=== PATIENT | female | born 1995 | race Caucasian/White ===

== ENCOUNTER 2017-06-15 04:31 | Emergency (ER) | payer BC, OTHER ==
--- NOTE | 2017-06-15 04:52 | EDM.PDOC ---
ED HPI GENERAL MEDICAL PROBLEM - General Chief Complaint: Genitourinary Problem Stated Complaint: uti symptoms Time Seen by Provider: 06/15/17 04:39 Source of Information: Reports: Patient History Limitations: Reports: No Limitations - History of Present Illness INITIAL COMMENTS - FREE TEXT/NARRATIVE: Patient states that about 3 weeks ago she began to have UTI symptoms of burning , frequency, and painful urination. She states that her urine and STI testing came back negative. She did then go into the [facility] and was given a vaginal topical gel for yeast infection. She did get better for a week or so , but the symptoms have returned. She additionally has lower bilateral back pain, right greater than left. Has burning, frequency as well. She also states some nausea. No additional symptoms. Onset: Today, Sudden Onset Time: 03:00 Location: Reports: Back Quality: Reports: Burning, Same as Previous Episode, Sharp, Stabbing Severity: Moderate Associated Symptoms: Reports: Nausea/Vomiting - Related Data Allergies Allergy/AdvReac Type Severity Reaction Status Date / Time cephalexin Allergy Rash Verified 06/15/17 04:35 Home Meds: Home Meds . [No Known Home Meds] 06/15/17 [History] Past Medical History - Past Health History Medical/Surgical History: Denies Medical/Surgical History Social & Family History - Tobacco Use Smoking Status *Q: Current Every Day Smoker Years of Tobacco use: 5 Packs/Tins Daily: 0.5 ED ROS GENERAL - Review of Systems Review Of Systems: See Below Constitutional: Reports: No Symptoms HEENT: Reports: No Symptoms Respiratory: Reports: No Symptoms Cardiovascular: Reports: No Symptoms Endocrine: Reports: No Symptoms GI/Abdominal: Reports: Nausea : Reports: Dysuria, Flank Pain, Frequency, Urgency Skin: Reports: No Symptoms Neurological: Reports: No Symptoms Psychiatric: Reports: No Symptoms Hematologic/Lymphatic: Reports: No Symptoms Immunologic: Reports: No Symptoms ED EXAM, RENAL/ - Physical Exam Exam: See Below Exam Limited By: No Limitations General Appearance: Alert, WD/WN, No Apparent Distress Head: Atraumatic, Normocephalic Neck: Normal Inspection, Supple, Non-Tender, Full Range of Motion Respiratory/Chest: No Respiratory Distress, Lungs Clear, Normal Breath Sounds, No Accessory Muscle Use, Chest Non-Tender Cardiovascular: Normal Peripheral Pulses, No Edema, No Murmur, Tachycardia GI/Abdominal: Normal Bowel Sounds, Soft, Non-Tender, No Organomegaly, No Distention Back Exam: CVA Tenderness (L), CVA Tenderness (R) Extremities: Normal Inspection, Normal Range of Motion, Non-Tender, No Pedal Edema, Normal Capillary Refill Neurological: Alert, Oriented, CN II-XII Intact, Normal Cognition, Normal Gait, Normal Reflexes, No Motor/Sensory Deficits Psychiatric: Normal Affect, Normal Mood Skin Exam: Warm, Dry, Intact, Normal Color Lymphatic: No Adenopathy Course - Vital Signs Last Recorded V/S: Last Vital Signs Temp 35.6 C 06/15/17 04:31 Pulse 102 H 06/15/17 04:31 Resp 16 06/15/17 04:31 BP 116/82 06/15/17 04:31 Pulse Ox 97 06/15/17 04:31 Departure - Departure Time of Disposition: 05:12 Disposition: Home, Self-Care 01 Condition: Good Clinical Impression: Pyelonephritis, UTI (urinary tract infection) - Discharge Information Instructions: Urinary Tract Infection, Adult, [id number], Pyelonephritis, Adult, [id number] Forms: ED Department Discharge Additional Instructions: Drink plenty of fluid to help flush your kidneys Cipro 500 mg take one tablet twice daily for 7 days. Your first dose was given here. Get some over the counter pyridium for urinary pain. Take as directed. This will discolor your urine, most people report it turning orange. I did provide information on pyelonephritis as well as for UTI If you do not improve, make sure to follow up with your primary provider during clinic hours Please call us if you have any questions or concerns. - Problem List & Annotations (1) Pyelonephritis SNOMED Code(s): 65673793 Code(s): N12 - TUBULO-INTERSTITIAL NEPHRITIS, NOT SPCF ACUTE OR CHRONIC Status: Acute Priority: Low Current Visit: Yes (2) UTI (urinary tract infection) SNOMED Code(s): 21531365 Code(s): N39.0 - URINARY TRACT INFECTION, SITE NOT SPECIFIED Status: Acute Priority: Low Current Visit: Yes Qualifiers: Urinary tract infection type: acute cystitis Hematuria presence: with hematuria Qualified Code(s): N30.01 - Acute cystitis with hematuria - Problem List Review Problem List Initiated/Reviewed/Updated: Yes - Assessment/Plan Assessment:: pyelonephritis uti Plan: Drink plenty of fluid to help flush your kidneys Cipro 500 mg take one tablet twice daily for 7 days. Your first dose was given here. Get some over the counter pyridium for urinary pain. Take as directed. This will discolor your urine, most people report it turning orange. I did provide information on pyelonephritis as well as for UTI If you do not improve, make sure to follow up with your primary provider during clinic hours Please call us if you have any questions or concerns.
[2017-06-15] MEDS ORDERED: Ciprofloxacin 500 MG Tab PO ONE (04:59)
[2017-06-15] MEDS ORDERED: Phenazopyridine 95 MG Tab PO ONE (05:07)
== END 2017-06-15 05:17 | disposition home or self-care (01) ==
LOC: VM.ED 04:31
DX: N12 Tubulo-interstitial nephritis, not specified as acute or chronic (principal); N39.0 Urinary tract infection, site not specified; F17.210 Nicotine dependence, cigarettes, uncomplicated; Z88.1 Allergy status to other antibiotic agents
CPT/HCPCS: 81002; 99283; A9270

== ENCOUNTER 2019-02-26 13:28 | Emergency (ER) | payer OTHER ==
[2019-02-26] MEDS ORDERED: Sodium Chloride 0.9% 10 ML Syringe FLUSH PRN (13:42)
[2019-02-26] MEDS ORDERED: Sodium Chloride 0.9% 1,000 ML IV ONE (13:42)
[2019-02-26] MEDS ORDERED: hydrOXYzine HCl 25 MG Tab PO ONE (13:42)
--- NOTE | 2019-02-26 13:51 | EDM.PDOC ---
ED HPI GENERAL MEDICAL PROBLEM - General Chief Complaint: Cardiovascular Problem Stated Complaint: ER VISIT Time Seen by Provider: 02/26/19 13:28 Source of Information: Reports: Patient History Limitations: Reports: No Limitations - History of Present Illness INITIAL COMMENTS - FREE TEXT/NARRATIVE: Patient comes in the emergency department with complaints heart palpitation. Patient states that this started approximately 2 weeks ago. Patient states that she has intermittent shortness of breath. She denies any intervening or alleviating symptoms with a heart palpitations. She states that she is on Zoloft and BuSpar and she has been on them now for greater than 6 months. She has not had any recent medication changes. She denies having any increased stress or anxiety concerns. Patient currently denies any fever, nausea vomiting , diarrhea, headache, edema or changes in vision. She describes the pain and discomfort as sharp and shooting. Denies having any radiation to the jaw or neck. No recent fevers or other illnesses noted. Onset: Gradual Location: Reports: Chest Quality: Reports: Sharp, Stabbing Severity: Moderate Improves with: Reports: None Worsens with: Reports: None Associated Symptoms: Reports: No Other Symptoms Left Chest Pain Score (Numeric/FACES): 6 - Related Data Allergies Allergy/AdvReac Type Severity Reaction Status Date / Time cephalexin Allergy Rash Verified 02/26/19 13:51 Home Meds: Home Meds Sertraline HCl 75 mg PO DAILY 02/26/19 [History] busPIRone [Buspar] 1 tab PO BID 02/26/19 [History] Past Medical History - Past Health History Medical/Surgical History: Denies Medical/Surgical History ED ROS GENERAL - Review of Systems Review Of Systems: See Below Constitutional: Reports: No Symptoms HEENT: Reports: No Symptoms Respiratory: Reports: Shortness of Breath (intermittent when she feels the heart palpitations are worse ) Cardiovascular: Reports: No Symptoms Endocrine: Reports: No Symptoms GI/Abdominal: Reports: No Symptoms : Reports: No Symptoms Musculoskeletal: Reports: No Symptoms Skin: Reports: No Symptoms Neurological: Reports: No Symptoms Psychiatric: Reports: No Symptoms Hematologic/Lymphatic: Reports: No Symptoms Immunologic: Reports: No Symptoms ED EXAM, GENERAL - Physical Exam Exam: See Below Exam Limited By: No Limitations General Appearance: Alert, WD/WN, No Apparent Distress Head: Atraumatic, Normocephalic Neck: Normal Inspection, Supple, Non-Tender, Full Range of Motion Respiratory/Chest: No Respiratory Distress, Lungs Clear, Normal Breath Sounds, No Accessory Muscle Use, Chest Non-Tender Cardiovascular: Normal Peripheral Pulses, Regular Rate, Rhythm GI/Abdominal: Normal Bowel Sounds, Soft, Non-Tender, No Organomegaly, No Distention, No Abnormal Bruit Extremities: Normal Inspection, Normal Range of Motion, Non-Tender, No Pedal Edema, Normal Capillary Refill Neurological: Alert, Oriented, Normal Gait Psychiatric: Normal Affect, Normal Mood Skin Exam: Warm, Dry, Intact, Normal Color Course - Vital Signs Last Recorded V/S: Last Vital Signs Temp 37.1 C 02/26/19 13:55 Pulse 79 02/26/19 13:55 Resp 20 02/26/19 13:55 BP 113/74 02/26/19 14:38 Pulse Ox 100 02/26/19 13:55 - Orders/Labs/Meds Orders: Active Orders 24 hr Category Date Time Status EKG Documentation Completion [RC] STAT Care 02/26/19 13:42 Active Sodium Chloride 0.9% [Saline Flush] Med 02/26/19 13:42 Active 10 ml FLUSH ASDIRECTED PRN Peripheral IV Insertion Adult [OM.PC] Stat Oth 02/26/19 13:41 Ordered Medication Orders Sodium Chloride (Saline Flush) 10 ml FLUSH ASDIRECTED PRN PRN Reason: Keep Vein Open Labs: Laboratory Tests 02/26/19 02/26/19 02/26/19 Range/Units 13:52 13:52 13:52 WBC 5.7 (4.0-10.0) x10^3/uL RBC 3.97 L (4.00-5.50) x10^6/uL Hgb 11.9 L (12.0-16.0) g/dL Hct 36.1 (33.0-47.0) % MCV 90.9 (78.0-93.0) fL MCH 30.0 (26.0-32.0) pg MCHC 33.0 (32.0-36.0) g/dL RDW Coeff of Courtney 13.8 (10.0-15.0) % Plt Count 352 (130-400) x10^3/uL Neut % (Auto) 58.9 (50.0-80.0) % Lymph % (Auto) 33.6 (25.0-50.0) % [place] % (Auto) 5.6 (2.0-11.0) % Eos % (Auto) 1.7 (0.0-4.0) % Baso % (Auto) 0.2 (0.2-1.2) % D-Dimer, Quantitative < 0.19 (<=0.58) mg/LFEU Sodium 146 H (136-145) mmol/L Potassium 3.9 (3.5-5.1) mmol/L Chloride 109 H (98-107) mmol/L Carbon Dioxide 27 (21-32) mmol/L Anion Gap 13.9 (10-20) mmol/L BUN 10 (7-18) mg/dL Creatinine 0.6 (0.55-1.02) mg/dL Est Cr Clr Drug Dosing 105.31 mL/min Estimated GFR (MDRD) > 60 Glucose 75 (74-106) mg/dL Calcium 8.2 L (8.5-10.1) mg/dL Corrected Calcium 8.44 L (8.5-10.1) mg/dL Total Bilirubin 0.2 (0.2-1.0) mg/dL AST 15 (15-37) U/L ALT 30 (14-59) U/L Alkaline Phosphatase 45 L (46-116) U/L POC Troponin I (0.00-0.08) ng/mL Total Protein 7.0 (6.4-8.2) g/dL Albumin 3.7 (3.4-5.0) g/dL Globulin 3.3 Albumin/Globulin Ratio 1.12 02/26/19 Range/Units 14:00 WBC (4.0-10.0) x10^3/uL RBC (4.00-5.50) x10^6/uL Hgb (12.0-16.0) g/dL Hct (33.0-47.0) % MCV (78.0-93.0) fL MCH (26.0-32.0) pg MCHC (32.0-36.0) g/dL RDW Coeff of Courtney (10.0-15.0) % Plt Count (130-400) x10^3/uL Neut % (Auto) (50.0-80.0) % Lymph % (Auto) (25.0-50.0) % [place] % (Auto) (2.0-11.0) % Eos % (Auto) (0.0-4.0) % Baso % (Auto) (0.2-1.2) % D-Dimer, Quantitative (<=0.58) mg/LFEU Sodium (136-145) mmol/L Potassium (3.5-5.1) mmol/L Chloride (98-107) mmol/L Carbon Dioxide (21-32) mmol/L Anion Gap (10-20) mmol/L BUN (7-18) mg/dL Creatinine (0.55-1.02) mg/dL Est Cr Clr Drug Dosing mL/min Estimated GFR (MDRD) Glucose (74-106) mg/dL Calcium (8.5-10.1) mg/dL Corrected Calcium (8.5-10.1) mg/dL Total Bilirubin (0.2-1.0) mg/dL AST (15-37) U/L ALT (14-59) U/L Alkaline Phosphatase (46-116) U/L POC Troponin I 0.00 (0.00-0.08) ng/mL Total Protein (6.4-8.2) g/dL Albumin (3.4-5.0) g/dL Globulin Albumin/Globulin Ratio Meds: Medications Generic Name Dose Route Start Last Admin Trade Name Freq PRN Reason Stop Dose Admin Sodium Chloride 10 ml 02/26/19 13:42 Saline Flush FLUSH ASDIRECTED PRN Keep Vein Open Discontinued Medications Generic Name Dose Route Start Last Admin Trade Name Freq PRN Reason Stop Dose Admin Hydroxyzine HCl 50 mg 02/26/19 13:42 02/26/19 13:49 Atarax PO 02/26/19 13:43 50 mg ONETIME ONE Administration Sodium Chloride 1,000 mls @ 1,000 mls/hr 02/26/19 13:42 02/26/19 13:40 Normal Saline IV 02/26/19 14:41 1,000 mls/hr ONETIME ONE Administration - Re-Assessments/Exams Free Text/Narrative Re-Assessment/Exam: 02/26/19 14:24 Pt is feeling better the heart palpitations are gone however the left sternal chest discomfort is still present and has not changed. Departure - Departure Time of Disposition: 15:20 Disposition: Home, Self-Care 01 Condition: Good Clinical Impression: Heart palpitations Instructions: Palpitations, [id number] Referrals: Swathi Arnett MD [Primary Care Provider] - Forms: ED Department Discharge Additional Instructions: 1. rest 2. increase your water intake 3. Follow up with PCP this next week if not better 4. All labs were negative today 5. Chext xray showed no acute findings 6. Activity and diet as tolerated 7. Makes sure you are taking your medications with 8 oz of water and at least 200-300 calories 8. Smoking sensation is advised and ND quits offers free resources when you are ready. Please remember your medications and smoking increase your risk for health problems. 9. Please call with any questions or concerns. - Problem List Review Problem List Initiated/Reviewed/Updated: Yes - My Orders Last 24 Hours: My Active Orders 02/26/19 13:41 Peripheral IV Insertion Adult [OM.PC] Stat 02/26/19 13:42 EKG Documentation Completion [RC] STAT Sodium Chloride 0.9% [Saline Flush] 10 ml FLUSH ASDIRECTED PRN - Assessment/Plan Last 24 Hours: My Active Orders 02/26/19 13:41 Peripheral IV Insertion Adult [OM.PC] Stat 02/26/19 13:42 EKG Documentation Completion [RC] STAT Sodium Chloride 0.9% [Saline Flush] 10 ml FLUSH ASDIRECTED PRN Assessment:: 1. chest pain/palpitation Plan: 1. Labs completed in the ER. results reviewed with the patient. 2. EKG completed in the ER-normal sinus with no ectopy 3. IV fluids given in the ER. 4. Hydroxyzine PO given to help with anxiety 5. Xray completed in ER. negative findings 6. Discussed follow up care, activity, diet, and exercise 7. All questions and concerns addressed prior to discharge
[2019-02-26 14:25] LABS: CHLORIDE,CL 109 mmol/L (98-107); SODIUM,NA 146 mmol/L (136-145)
[2019-02-26 14:27] LABS: ANION GAP 13.9 mmol/L (10-20)
--- NOTE | 2019-02-26 15:09 | CR ---
[id number] RAD/RAD Chest PA And Lateral EXAM: RAD Chest PA And Lateral INDICATION: LEFT SIDE CHEST PAIN. COMPARISON: None. DISCUSSION: Cardiomediastinal silhouette is normal in size and contour. No infiltrate, effusion, pneumothorax, or edema. No radiographic evidence of acute rib fracture. IMPRESSION: No acute cardiopulmonary abnormality. Damir Suárez DO 02/26/19 1507 Thank you for allowing us to participate in the care of your patient.
== END 2019-02-26 15:34 | disposition home or self-care (01) ==
LOC: VM.ED 13:28
DX: R00.2 Palpitations (principal); R07.9 Chest pain, unspecified; Z88.1 Allergy status to other antibiotic agents
CPT/HCPCS: 36415; 71046; 80053; 84484; 85025; 85379; 93005; 99285-25; A9270-GY; J7030

== ENCOUNTER 2019-03-17 14:26 | Emergency (ER) | payer OTHER ==
[2019-03-17] MEDS ORDERED: Sodium Chloride 0.9% 1,000 ML IV ONE (14:32)
[2019-03-17] MEDS ORDERED: Sodium Chloride 0.9% 10 ML Syringe FLUSH PRN (14:32)
[2019-03-17] MEDS ORDERED: hydrOXYzine HCl 25 MG Tab PO ONE (14:33)
--- NOTE | 2019-03-17 14:39 | EDM.PDOC ---
ED HPI GENERAL MEDICAL PROBLEM - General Chief Complaint: Cardiovascular Problem Stated Complaint: HEART Time Seen by Provider: 03/17/19 14:26 Source of Information: Reports: Patient History Limitations: Reports: No Limitations - History of Present Illness INITIAL COMMENTS - FREE TEXT/NARRATIVE: Patient comes into the emergency department with complaint of heart palpitations. Patient states that the heart palpitations started around 7 AM this morning. Patient was recently in the emergency department for similar incidents and ended up having a Holter monitor placed. Pt was found to have a sinus tachycardia. She was recently placed on propranolol 60 mg daily. She just started this approximately 1 week ago. She states after she took the medication this morning she noticed that she had her palpitations and felt that her chest has a heavy sensation. She states that it has not gone away throughout the day. It also has not progressing gotten worse. She denies anything making it better or worse. She denies any changes in her diet. She also denies any recent fevers or swelling in her lower extremity is. Chest pain is described as a heavy feeling. No family history of sudden cardiac Location: Reports: Chest Quality: Reports: Pressure Severity: Moderate Improves with: Reports: None Worsens with: Reports: None Associated Symptoms: Reports: No Other Symptoms - Related Data Allergies Allergy/AdvReac Type Severity Reaction Status Date / Time cephalexin Allergy Rash Verified 03/17/19 14:56 Home Meds: Home Meds Sertraline HCl 75 mg PO DAILY 02/26/19 [History] busPIRone [Buspar] 1 tab PO BID 02/26/19 [History] Metoprolol Tartrate 25 mg PO DAILY PRN #10 tablet 03/17/19 [Rx] Propranolol HCl [Propranolol] 60 mg PO DAILY 03/17/19 [History] Past Medical History - Past Health History Medical/Surgical History: Denies Medical/Surgical History [employer] History: Reports: Psychiatric History: Reports: Anxiety, Depression - Past Surgical History HEENT Surgical History: Reports: Adenoidectomy, Tonsillectomy Musculoskeletal Surgical History: Reports: Other (See Below) Other Musculoskeletal Surgeries/Procedures:: hx of surgery to right ankle, right femur and jaw ED ROS GENERAL - Review of Systems Review Of Systems: See Below Constitutional: Reports: No Symptoms HEENT: Reports: No Symptoms Respiratory: Reports: No Symptoms Cardiovascular: Reports: Palpitations Endocrine: Reports: No Symptoms GI/Abdominal: Reports: No Symptoms : Reports: No Symptoms Musculoskeletal: Reports: No Symptoms Skin: Reports: No Symptoms Neurological: Reports: No Symptoms Psychiatric: Reports: No Symptoms ED EXAM, GENERAL - Physical Exam Exam: See Below Exam Limited By: No Limitations General Appearance: Alert, WD/WN, No Apparent Distress Head: Atraumatic, Normocephalic Respiratory/Chest: No Respiratory Distress, Lungs Clear, Normal Breath Sounds, No Accessory Muscle Use, Chest Non-Tender Cardiovascular: Regular Rate, Rhythm Back Exam: Normal Inspection, Full Range of Motion Extremities: Normal Inspection, Normal Range of Motion, Non-Tender, No Pedal Edema, Normal Capillary Refill Neurological: Alert, Oriented Psychiatric: Normal Affect, Normal Mood, Anxious Skin Exam: Warm, Dry, Intact, Normal Color Course - Vital Signs Last Recorded V/S: Last Vital Signs Temp 36.2 C 03/17/19 14:30 Pulse 58 L 03/17/19 14:30 Resp 16 03/17/19 14:30 BP 121/75 03/17/19 14:30 Pulse Ox 99 03/17/19 14:30 - Orders/Labs/Meds Orders: Active Orders 24 hr Category Date Time Status EKG Documentation Completion [RC] STAT Care 03/17/19 14:32 Active Sodium Chloride 0.9% [Saline Flush] Med 03/17/19 14:32 Active 10 ml FLUSH ASDIRECTED PRN Peripheral IV Insertion Adult [OM.PC] Stat Oth 03/17/19 14:32 Ordered Medication Orders Sodium Chloride (Saline Flush) 10 ml FLUSH ASDIRECTED PRN PRN Reason: Keep Vein Open Labs: Laboratory Tests 03/17/19 03/17/19 Range/Units 14:43 14:43 WBC 7.7 (4.0-10.0) x10^3/uL RBC 4.09 (4.00-5.50) x10^6/uL Hgb 12.4 (12.0-16.0) g/dL Hct 37.2 (33.0-47.0) % MCV 91.0 (78.0-93.0) fL MCH 30.3 (26.0-32.0) pg MCHC 33.3 (32.0-36.0) g/dL RDW Coeff of Courtney 13.9 (10.0-15.0) % Plt Count 317 (130-400) x10^3/uL Neut % (Auto) 69.3 (50.0-80.0) % Lymph % (Auto) 24.8 L (25.0-50.0) % [place] % (Auto) 5.2 (2.0-11.0) % Eos % (Auto) 0.6 (0.0-4.0) % Baso % (Auto) 0.1 L (0.2-1.2) % Sodium 142 (136-145) mmol/L Potassium 3.5 (3.5-5.1) mmol/L Chloride 105 (98-107) mmol/L Carbon Dioxide 26 (21-32) mmol/L Anion Gap 14.5 (10-20) mmol/L BUN 10 (7-18) mg/dL Creatinine 0.8 (0.55-1.02) mg/dL Est Cr Clr Drug Dosing TNP Estimated GFR (MDRD) > 60 Glucose 130 H (74-106) mg/dL Calcium 8.9 (8.5-10.1) mg/dL Corrected Calcium 8.90 (8.5-10.1) mg/dL Total Bilirubin 0.2 (0.2-1.0) mg/dL AST 17 (15-37) U/L ALT 31 (14-59) U/L Alkaline Phosphatase 52 (46-116) U/L Troponin I < 0.017 (<=0.056) ng/mL Total Protein 7.3 (6.4-8.2) g/dL Albumin 4.0 (3.4-5.0) g/dL Globulin 3.3 Albumin/Globulin Ratio 1.21 Meds: Medications Generic Name Dose Route Start Last Admin Trade Name Freq PRN Reason Stop Dose Admin Sodium Chloride 10 ml 03/17/19 14:32 Saline Flush FLUSH ASDIRECTED PRN Keep Vein Open Discontinued Medications Generic Name Dose Route Start Last Admin Trade Name Freq PRN Reason Stop Dose Admin Hydroxyzine HCl 50 mg 03/17/19 14:33 03/17/19 14:49 Atarax PO 03/17/19 14:34 50 mg ONETIME ONE Administration Sodium Chloride 1,000 mls @ 1,000 mls/hr 03/17/19 14:32 03/17/19 14:49 Normal Saline IV 03/17/19 15:31 1,000 mls/hr ONETIME ONE Administration - Re-Assessments/Exams Free Text/Narrative Re-Assessment/Exam: 03/17/19 15:38 chest heaviness is relieved however she still feels the palpitations Departure - Departure Time of Disposition: 16:10 Disposition: Home, Self-Care 01 Condition: Good Clinical Impression: Heart palpitations Instructions: Palpitations, [id number] Referrals: Swathi Arnett MD [Primary Care Provider] - Forms: ED Department Discharge Additional Instructions: 1. Rest 2. Increase water intake 3. Stop the propranolol 4. Start metoprolol tartrate 25 mg 1 tablet daily when necessary when heart palpitations occurred 5. It is also advisable that you talk to your PCP about having your antidepressant and antianxiety medication increased to help with the palpitations 6. Decrease caffeine intake when possible 7. Follow up as necessary 8. Call with any questions or concerns - Problem List Review Problem List Initiated/Reviewed/Updated: Yes - My Orders Last 24 Hours: My Active Orders 03/17/19 14:32 EKG Documentation Completion [RC] STAT Sodium Chloride 0.9% [Saline Flush] 10 ml FLUSH ASDIRECTED PRN Peripheral IV Insertion Adult [OM.PC] Stat - Assessment/Plan Last 24 Hours: My Active Orders 03/17/19 14:32 EKG Documentation Completion [RC] STAT Sodium Chloride 0.9% [Saline Flush] 10 ml FLUSH ASDIRECTED PRN Peripheral IV Insertion Adult [OM.PC] Stat Assessment:: #1 heart palpitations # 2 bradycardia Plan: #1 EKG completed emergency department. Results reviewed with patient #2 IV started with IV fluids given in the ER #3 hydroxyzine by mouth given for comfort in the emergency department #4 labs completed in the ER. Results reviewed with patient #5 consultation completed with cardiology at [facility] who suggests stopping of propranolol 60 mg daily- for he feels that is extremely high for the patients age, weight, and health history. He recommends switching over to metoprolol 25 mg PRN. He also suggests increasing her antidepressants to help control those symptoms for they could be causing the increased heart palpitations. He also advises that observation status over the course the next 12-24 hours is advisable for the higher dose of propranolol to ensure no worsening bradycardia occurs and providing IV hydration. #6 she does not wish to be admitted. She feels like her current symptoms are resolving. She would like to go home and monitor herself at home. She'll increase her oral intake. Patient understands the risk of not being admitted. Patient is assuming the risk. #7 All questions and concerns addressed prior to discharge #8 metoprolol tartrate 25 mg tablet take 1 tab daily PRN disp 10 tabs prescription provided to the patient 10 tablets were provided and follow-up recommendations provided to the patient
[2019-03-17 15:12] LABS: CHLORIDE,CL 105 mmol/L (98-107); SODIUM,NA 142 mmol/L (136-145)
[2019-03-17 15:14] LABS: ANION GAP 14.5 mmol/L (10-20)
== END 2019-03-17 16:30 | disposition home or self-care (01) ==
LOC: VM.ED 14:26
DX: R00.2 Palpitations (principal); R00.1 Bradycardia, unspecified; F41.9 Anxiety disorder, unspecified; F32.9 Major depressive disorder, single episode, unspecified; Z79.899 Other long term (current) drug therapy; Z98.890 Other specified postprocedural states; Z88.1 Allergy status to other antibiotic agents
CPT/HCPCS: 80053; 84484; 85025; 93005; 96360; 99285; A9270; J7030

== ENCOUNTER 2019-04-08 12:50 | Emergency (ER) | payer OTHER ==
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
== END 2019-04-08 14:39 | disposition home or self-care (01) ==
LOC: VM.ED 12:50
DX: S00.93XA Contusion of unspecified part of head, initial encounter (principal); S60.812A Abrasion of left wrist, initial encounter; S60.811A Abrasion of right wrist, initial encounter; F41.9 Anxiety disorder, unspecified; F32.9 Major depressive disorder, single episode, unspecified; Z98.890 Other specified postprocedural states; Z79.899 Other long term (current) drug therapy; Z88.1 Allergy status to other antibiotic agents; V43.52XA Car driver injured in collision with other type car in traffic accident, initial encounter
CPT/HCPCS: 70450; 73110-50; 99284-25

== ENCOUNTER 2019-06-22 00:20 | Emergency (ER) | payer BC, OTHER ==
[2019-06-22] MEDS ORDERED: Sodium Chloride 0.9% 10 ML Syringe FLUSH PRN (00:36)
[2019-06-22] MEDS ORDERED: Sodium Chloride 0.9% 1,000 ML IV ONE (00:37)
[2019-06-22] MEDS ORDERED: Ondansetron 4 MG/2 ML SDV IVPUSH ONE ×2 (00:37→00:40)
[2019-06-22 01:28] LABS: CHLORIDE,CL 103 mmol/L (98-107); SODIUM,NA 141 mmol/L (136-145)
[2019-06-22 01:29] LABS: ANION GAP 13.7 mmol/L (10-20)
[2019-06-22] MEDS ORDERED: Ketorolac 15 MG/ML SDV IVPUSH ONE (01:41)
--- NOTE | 2019-06-22 02:22 | EDM.PDOC ---
ED HPI GENERAL MEDICAL PROBLEM - General Chief Complaint: Abdominal Pain Stated Complaint: Abdominal pain, nausea, diarrhea Time Seen by Provider: 06/22/19 00:25 Source of Information: Reports: Patient History Limitations: Reports: No Limitations - History of Present Illness INITIAL COMMENTS - FREE TEXT/NARRATIVE: Pt. presents to ER with complaints of nausea, vomiting, and diarrhea. She states that she was seen in the clinic for the same earlier today. She had labs and CT abdomen and pelvis with contrast, all of which were negative for acute pathology with the exception of some colonic dilation. No abscess, appendicitis , free fluid, or obstruction was noted. Pt. was sent home on Zofran. Pt. is concerned that she is still having discomfort. Also she is concerned that she is "not passing gas" and is concerned she is has a bowel obstruction. Pt. denies any fever of chills. No chest pain or shortness of breath. Denies any blood in stools. Denies any use of antibiotics recently. No recent hospitalizations. She was seen earlier this week as well with abdominal pain and underwent a pelvic US which was negative and felt to possibly have been an ovarian cyst. Onset Date: 06/19/19 Location: Reports: Abdomen Associated Symptoms: Reports: Nausea/Vomiting. 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) Other Treatments DEVICE REPAIR TECHNICIAN: zofran po umbilical Pain Score (Numeric/FACES): 5 - Related Data Allergies Allergy/AdvReac Type Severity Reaction Status Date / Time cephalexin Allergy Rash Verified 06/22/19 00:42 Home Meds: Home Meds Sertraline HCl 75 mg PO DAILY 02/26/19 [History] busPIRone [Buspar] 1 tab PO BID 02/26/19 [History] Propranolol HCl [Propranolol] 60 mg PO DAILY 03/17/19 [History] Past Medical History - Past Health History Medical/Surgical History: Denies Medical/Surgical History Cardiovascular History: Reports: Other (See Below) Other Cardiovascular History: Tachycardia 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 Psychiatric History: Reports: Anxiety, Depression - Past Surgical History HEENT Surgical History: Reports: Adenoidectomy, Tonsillectomy Musculoskeletal Surgical History: Reports: Other (See Below) Other Musculoskeletal Surgeries/Procedures:: hx of surgery to right ankle, right femur and jaw ED ROS GENERAL - Review of Systems Review Of Systems: See Below Constitutional: Reports: No Symptoms HEENT: Reports: No Symptoms Respiratory: Reports: No Symptoms Cardiovascular: Reports: No Symptoms Endocrine: Reports: No Symptoms GI/Abdominal: Reports: Other (See HPI) : Reports: No Symptoms. Denies: Dysuria, Frequency, Hematuria, Urgency Musculoskeletal: Reports: No Symptoms Skin: Reports: No Symptoms Neurological: Reports: No Symptoms Psychiatric: Reports: No Symptoms Hematologic/Lymphatic: Reports: No Symptoms Immunologic: Reports: No Symptoms ED EXAM, GENERAL - Physical Exam Exam: See Below Exam Limited By: No Limitations General Appearance: Alert, WD/WN, No Apparent Distress Head: Atraumatic, Normocephalic Neck: Normal Inspection, Supple, Non-Tender, Full Range of Motion Respiratory/Chest: No Respiratory Distress, Lungs Clear, Normal Breath Sounds, No Accessory Muscle Use, Chest Non-Tender Cardiovascular: Normal Peripheral Pulses, Regular Rate, Rhythm, No Edema, No Gallop, No JVD, No Murmur Peripheral Pulses: 4+: Radial (L) GI/Abdominal: Normal Bowel Sounds, Soft, No Organomegaly, No Distention, No Mass , Tender (Female) Exam: Deferred Rectal (Female) Exam: Deferred Back Exam: Normal Inspection, Full Range of Motion Extremities: Normal Inspection, Normal Range of Motion, Normal Capillary Refill Neurological: Alert, Oriented, CN II-XII Intact, Normal Cognition Psychiatric: Normal Affect, Normal Mood Skin Exam: Warm, Dry, Intact Course - Vital Signs Last Recorded V/S: Last Vital Signs Temp 36.9 C 06/22/19 00:20 Pulse 59 L 06/22/19 00:20 Resp 16 06/22/19 00:20 BP 107/77 06/22/19 00:20 Pulse Ox 98 06/22/19 00:20 - Orders/Labs/Meds Orders: Active Orders 24 hr Category Date Time Status Abdomen 2V AP Flat Upright [CR] Stat Exams 06/22/19 00:38 Taken Sodium Chloride 0.9% [Saline Flush] Med 06/22/19 00:36 Active 10 ml FLUSH ASDIRECTED PRN Peripheral IV Insertion Adult [OM.PC] Routine Oth 06/22/19 00:36 Ordered Medication Orders Sodium Chloride (Saline Flush) 10 ml FLUSH ASDIRECTED PRN PRN Reason: Keep Vein Open Labs: Laboratory Tests 06/22/19 06/22/19 Range/Units 01:01 01:01 WBC 7.1 (4.0-10.0) x10^3/uL RBC 4.42 (4.00-5.50) x10^6/uL Hgb 13.5 (12.0-16.0) g/dL Hct 39.4 (33.0-47.0) % MCV 89.1 (78.0-93.0) fL MCH 30.5 (26.0-32.0) pg MCHC 34.3 (32.0-36.0) g/dL RDW Coeff of Courtney 13.4 (10.0-15.0) % Plt Count 281 (130-400) x10^3/uL Neut % (Auto) 63.7 (50.0-80.0) % Lymph % (Auto) 26.2 (25.0-50.0) % [place] % (Auto) 8.2 (2.0-11.0) % Eos % (Auto) 1.8 (0.0-4.0) % Baso % (Auto) 0.1 L (0.2-1.2) % Sodium 141 (136-145) mmol/L Potassium 3.7 (3.5-5.1) mmol/L Chloride 103 (98-107) mmol/L Carbon Dioxide 28 (21-32) mmol/L Anion Gap 13.7 (10-20) mmol/L BUN 10 (7-18) mg/dL Creatinine 0.8 (0.55-1.02) mg/dL Est Cr Clr Drug Dosing 71.88 mL/min Estimated GFR (MDRD) > 60 Glucose 89 (74-106) mg/dL Calcium 9.2 (8.5-10.1) mg/dL Corrected Calcium 9.20 (8.5-10.1) mg/dL Phosphorus 3.8 (2.6-4.7) mg/dL Magnesium 1.8 (1.8-2.4) mg/dL Total Bilirubin 0.3 (0.2-1.0) mg/dL AST 24 (15-37) U/L ALT 52 (14-59) U/L Alkaline Phosphatase 79 (46-116) U/L C-Reactive Protein 0.4 (<=0.9) mg/dL Total Protein 7.3 (6.4-8.2) g/dL Albumin 4.0 (3.4-5.0) g/dL Globulin 3.3 Albumin/Globulin Ratio 1.21 Meds: Medications Generic Name Dose Route Start Last Admin Trade Name Freq PRN Reason Stop Dose Admin Sodium Chloride 10 ml 06/22/19 00:36 Saline Flush FLUSH ASDIRECTED PRN Keep Vein Open Discontinued Medications Generic Name Dose Route Start Last Admin Trade Name Freq PRN Reason Stop Dose Admin Sodium Chloride 1,000 mls @ 1,000 mls/hr 06/22/19 00:37 06/22/19 00:55 Normal Saline IV 06/22/19 01:36 1,000 mls/hr .BOLUS ONE Administration Ketorolac Tromethamine 15 mg 06/22/19 01:41 06/22/19 01:45 Toradol IVPUSH 06/22/19 01:42 15 mg ONETIME ONE Administration Ondansetron HCl 4 mg 06/22/19 00:37 06/22/19 00:58 Zofran IVPUSH 06/22/19 00:38 4 mg ONETIME ONE Administration Ondansetron HCl 4 mg 06/22/19 00:40 06/22/19 01:12 Zofran IVPUSH 06/22/19 00:41 Not Given ONETIME ONE - Radiology Interpretation Free Text/Narrative:: F/U abdominal series obtained and noted to be negative for acute pathology. Departure - Departure Time of Disposition: 02:11 Disposition: Home, Self-Care 01 Clinical Impression: Gastroenteritis, Vomiting, Diarrhea - Discharge Information Instructions: Viral Gastroenteritis, Adult, [id number] Referrals: PCP,Unobtain [Primary Care Provider] - Forms: ED Department Discharge Additional Instructions: Home to rest. No solid food tomorrow-just clear liquids for the next 24 hours. Then slowly advance diet. Use the zofran as needed for nausea or vomiting. If you continue to have diarrhea, use immodium but do not use it unless you are still having watery stools. Follow-up in clinic in 5-7 days. Return to ER if unable to hold down clear fluids. - My Orders Last 24 Hours: My Active Orders 06/22/19 00:36 Sodium Chloride 0.9% [Saline Flush] 10 ml FLUSH ASDIRECTED PRN Peripheral IV Insertion Adult [OM.PC] Routine 06/22/19 00:38 Abdomen 2V AP Flat Upright [CR] Stat - Assessment/Plan Last 24 Hours: My Active Orders 06/22/19 00:36 Sodium Chloride 0.9% [Saline Flush] 10 ml FLUSH ASDIRECTED PRN Peripheral IV Insertion Adult [OM.PC] Routine 06/22/19 00:38 Abdomen 2V AP Flat Upright [CR] Stat Plan: Home to rest. No solid food tomorrow-just clear liquids for the next 24 hours. Then slowly advance diet. Use the zofran as needed for nausea or vomiting. If you continue to have diarrhea, use immodium but do not use it unless you are still having watery stools. Follow-up in clinic in 5-7 days. Return to ER if unable to hold down clear fluids.
--- NOTE | 2019-06-22 08:21 | CR ---
[id number] RAD/RAD Abd Flat and Upright 2V Exam: RAD Abd Flat and Upright 2V Clinical Data: ABDOMINAL PAIN COMPARISON: CORRELATION IS MADE WITH YESTERDAY'S CAT SCAN FINDINGS: There is no bowel obstruction. Bilateral renal function is seen. An IUD is seen in the pelvis. There is no organomegaly or pathologic calcification. IMPRESSION: NO ACUTE PLAIN FILM ABNORMALITY. Aj Walker MD 06/22/19 0819 Thank you for allowing us to participate in the care of your patient.
== END 2019-06-22 02:11 | disposition home or self-care (01) ==
LOC: VM.ED 00:20
DX: K52.9 Noninfective gastroenteritis and colitis, unspecified (principal); F41.9 Anxiety disorder, unspecified; F32.9 Major depressive disorder, single episode, unspecified; Z88.1 Allergy status to other antibiotic agents; Z79.899 Other long term (current) drug therapy
CPT/HCPCS: 74019; 80053; 83735; 84100; 85025; 86140; 96361; 96374; 96375; 99284; J1885; J2405; J7030; 99283-GF

== ENCOUNTER 2019-07-05 15:57 | Emergency (ER) | payer BC ==
[2019-07-05] MEDS ORDERED: Sodium Chloride 0.9% 10 ML Syringe FLUSH PRN (16:06)
--- NOTE | 2019-07-05 16:08 | EDM.PDOC ---
ED HPI GENERAL MEDICAL PROBLEM - General Stated Complaint: CARDIAC SYMPTOMS Time Seen by Provider: 07/05/19 16:08 Source of Information: Reports: Patient History Limitations: Reports: No Limitations - History of Present Illness INITIAL COMMENTS - FREE TEXT/NARRATIVE: Pt presents with hx of tachycardia is currently on propranolol 60 mg daily for rate control. Pt states she has been feeling palpitations today. Onset: Today Improves with: Reports: None Worsens with: Reports: None Associated Symptoms: Reports: Other (chest pressure ) chest Pain Score (Numeric/FACES): 7 - Related Data Allergies Allergy/AdvReac Type Severity Reaction Status Date / Time cephalexin Allergy Rash Verified 07/05/19 16:24 Home Meds: Home Meds Sertraline HCl 75 mg PO DAILY 02/26/19 [History] busPIRone [Buspar] 1 tab PO BID 02/26/19 [History] Propranolol HCl [Propranolol] 60 mg PO DAILY 03/17/19 [History] Past Medical History - Past Health History Medical/Surgical History: Denies Medical/Surgical History Cardiovascular History: Reports: Other (See Below) Other Cardiovascular History: Tachycardia 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 Psychiatric History: Reports: Anxiety, Depression - Past Surgical History HEENT Surgical History: Reports: Adenoidectomy, Tonsillectomy Musculoskeletal Surgical History: Reports: Other (See Below) Other Musculoskeletal Surgeries/Procedures:: hx of surgery to right ankle, right femur and jaw ED ROS GENERAL - Review of Systems Review Of Systems: See Below Constitutional: Reports: No Symptoms HEENT: Reports: No Symptoms Respiratory: Reports: No Symptoms Cardiovascular: Reports: Palpitations, Other (chest pressure ) Endocrine: Reports: No Symptoms GI/Abdominal: Reports: No Symptoms : Reports: No Symptoms Musculoskeletal: Reports: No Symptoms Skin: Reports: No Symptoms ED EXAM, GENERAL - Physical Exam Exam: See Below Free Text/Narrative:: Pt presents c/o palpations eks SR no ectopy noted, trop negative, labs negative , states is not having palpations at this time, did has chest pressure that increased with palpation, pt is feeling better at this time. Pt to follow up with pcp for continued care. Exam Limited By: No Limitations General Appearance: Alert, WD/WN, No Apparent Distress Eye Exam: Bilateral Eye: Normal Inspection Nose: Normal Inspection Throat/Mouth: Normal Inspection Head: Atraumatic, Normocephalic Neck: Normal Inspection Respiratory/Chest: No Respiratory Distress, Lungs Clear, Normal Breath Sounds, No Accessory Muscle Use, Other (reproducipal chest pressure dose increase with palpation ) Cardiovascular: Normal Peripheral Pulses, Regular Rate, Rhythm, No Edema, No Gallop, No JVD, No Murmur, No Rub GI/Abdominal: Normal Bowel Sounds, Soft, Non-Tender Extremities: Normal Inspection Neurological: Alert, Oriented Psychiatric: Normal Affect, Normal Mood Skin Exam: Warm, Dry, Intact Course - Vital Signs Last Recorded V/S: Last Vital Signs Temp 37.7 C 07/05/19 16:05 Pulse 74 07/05/19 16:05 Resp 18 07/05/19 16:05 BP 118/73 07/05/19 16:05 Pulse Ox 98 07/05/19 16:05 - Orders/Labs/Meds Orders: Active Orders 24 hr Category Date Time Status EKG 12 Lead [EKG Documentation Completion] [RC] STAT Care 07/05/19 16:05 Active TROPONIN I,POC [POC] Routine Lab 07/05/19 16:26 Received Sodium Chloride 0.9% [Saline Flush] Med 07/05/19 16:06 Active 10 ml FLUSH ASDIRECTED PRN Peripheral IV Insertion Adult [OM.PC] Routine Oth 07/05/19 16:06 Ordered Medication Orders Sodium Chloride (Saline Flush) 10 ml FLUSH ASDIRECTED PRN PRN Reason: Keep Vein Open Labs: Laboratory Tests 07/05/19 07/05/19 07/05/19 Range/Units 16:16 16:16 16:16 WBC 9.0 (4.0-10.0) x10^3/uL RBC 4.53 (4.00-5.50) x10^6/uL Hgb 13.7 (12.0-16.0) g/dL Hct 40.1 (33.0-47.0) % MCV 88.5 (78.0-93.0) fL MCH 30.2 (26.0-32.0) pg MCHC 34.2 (32.0-36.0) g/dL RDW Coeff of Courtney 13.3 (10.0-15.0) % Plt Count 335 (130-400) x10^3/uL Neut % (Auto) 63.3 (50.0-80.0) % Lymph % (Auto) 29.8 (25.0-50.0) % [place] % (Auto) 5.4 (2.0-11.0) % Eos % (Auto) 1.4 (0.0-4.0) % Baso % (Auto) 0.1 L (0.2-1.2) % Sodium 139 (136-145) mmol/L Potassium 3.8 (3.5-5.1) mmol/L Chloride 103 (98-107) mmol/L Carbon Dioxide 27 (21-32) mmol/L Anion Gap 12.8 (10-20) mmol/L BUN 16 (7-18) mg/dL Creatinine 0.7 (0.55-1.02) mg/dL Est Cr Clr Drug Dosing 81.24 mL/min Estimated GFR (MDRD) > 60 Glucose 96 (74-106) mg/dL Calcium 8.9 (8.5-10.1) mg/dL POC Troponin I 0.00 (0.00-0.08) ng/mL Urine Color (YELLOW) Urine Appearance (CLEAR) Urine pH (5.0-8.0) Ur Specific [place] Urine Protein (NEGATIVE) mg/dL Urine Glucose (UA) (NEGATIVE) mg/dL Urine Ketones (NEGATIVE) mg/dL Urine Occult Blood (NEGATIVE) Urine Nitrite (NEGATIVE) Urine Bilirubin (NEGATIVE) Urine Urobilinogen (0.2) EU/dL Ur Leukocyte Esterase (NEGATIVE) Urine HCG, Qual (NEGATIVE) 07/05/19 07/05/19 Range/Units 16:25 16:25 WBC (4.0-10.0) x10^3/uL RBC (4.00-5.50) x10^6/uL Hgb (12.0-16.0) g/dL Hct (33.0-47.0) % MCV (78.0-93.0) fL MCH (26.0-32.0) pg MCHC (32.0-36.0) g/dL RDW Coeff of [place]ney (10.0-15.0) % Plt Count (130-400) x10^3/uL Neut % (Auto) (50.0-80.0) % Lymph % (Auto) (25.0-50.0) % [place] % (Auto) (2.0-11.0) % Eos % (Auto) (0.0-4.0) % Baso % (Auto) (0.2-1.2) % Sodium (136-145) mmol/L Potassium (3.5-5.1) mmol/L Chloride (98-107) mmol/L Carbon Dioxide (21-32) mmol/L Anion Gap (10-20) mmol/L BUN (7-18) mg/dL Creatinine (0.55-1.02) mg/dL Est Cr Clr Drug Dosing mL/min Estimated GFR (MDRD) Glucose (74-106) mg/dL Calcium (8.5-10.1) mg/dL POC Troponin I (0.00-0.08) ng/mL Urine Color Yellow (YELLOW) Urine Appearance Clear (CLEAR) Urine pH 7.0 (5.0-8.0) Ur Specific [place] 1.015 Urine Protein Negative (NEGATIVE) mg/dL Urine Glucose (UA) Negative (NEGATIVE) mg/dL Urine Ketones Negative (NEGATIVE) mg/dL Urine Occult Blood Negative (NEGATIVE) Urine Nitrite Negative (NEGATIVE) Urine Bilirubin Negative (NEGATIVE) Urine Urobilinogen 0.2 (0.2) EU/dL Ur Leukocyte Esterase Negative (NEGATIVE) Urine HCG, Qual Negative (NEGATIVE) Meds: Medications Generic Name Dose Route Start Last Admin Trade Name Freq PRN Reason Stop Dose Admin Sodium Chloride 10 ml 07/05/19 16:06 Saline Flush FLUSH ASDIRECTED PRN Keep Vein Open Departure - Departure Time of Disposition: 17:07 Disposition: Home, Self-Care 01 Condition: Good Clinical Impression: Non-cardiac chest pain - Discharge Information Instructions: Nonspecific Chest Pain, [id number] Referrals: Swathi Arnett MD [Primary Care Provider] - - My Orders Last 24 Hours: My Active Orders 07/05/19 16:05 EKG 12 Lead [EKG Documentation Completion] [RC] STAT 07/05/19 16:06 Sodium Chloride 0.9% [Saline Flush] 10 ml FLUSH ASDIRECTED PRN Peripheral IV Insertion Adult [OM.PC] Routine 07/05/19 16:26 TROPONIN I,POC [POC] Routine - Assessment/Plan Last 24 Hours: My Active Orders 07/05/19 16:05 EKG 12 Lead [EKG Documentation Completion] [RC] STAT 07/05/19 16:06 Sodium Chloride 0.9% [Saline Flush] 10 ml FLUSH ASDIRECTED PRN Peripheral IV Insertion Adult [OM.PC] Routine 07/05/19 16:26 TROPONIN I,POC [POC] Routine
[2019-07-05 16:50] LABS: CHLORIDE,CL 103 mmol/L (98-107); SODIUM,NA 139 mmol/L (136-145)
[2019-07-05 16:52] LABS: ANION GAP 12.8 mmol/L (10-20)
== END 2019-07-05 17:20 | disposition home or self-care (01) ==
LOC: VM.ED 15:57
DX: R07.89 Other chest pain (principal); F41.9 Anxiety disorder, unspecified; F32.9 Major depressive disorder, single episode, unspecified; R00.0 Tachycardia, unspecified; Z88.1 Allergy status to other antibiotic agents; Z79.899 Other long term (current) drug therapy
CPT/HCPCS: 36415; 80048; 81003; 81025; 84484; 85025; 93005; 99285-25

== ENCOUNTER 2019-09-01 17:30 | Emergency (ER) | payer BC ==
--- NOTE | 2019-09-01 18:04 | EDM.PDOC ---
ED HPI GENERAL MEDICAL PROBLEM - General Stated Complaint: ER Time Seen by Provider: 09/01/19 17:35 Source of Information: Reports: Patient History Limitations: Reports: No Limitations - History of Present Illness INITIAL COMMENTS - FREE TEXT/NARRATIVE: Pt. presents to ER with numerous complaints. She states that she has been experiencing chest pain yesterday. She states that the discomfort is better when she stands and lies down, and has the most pain when she is semi-seated. She also have been having problems with night sweats and fatigue. She states that she is constipated, and noticed that her stools have been "black" lately. She was diagnosed with unknown type colitis and is scheduled for a colonoscopy this month. She denies any july bloody stools. She has also been experiencing body aches and "heartburn" and states that she have been experiencing burps that taste metallic. Denies any use of tums, Pepto Bismol, or antacids. Pt. denies any fever or chills. No recent ill contacts. She was also recently seen in the clinic and diagnosed with increased peristaltic movement. She was concerned that she was . HCG was negative , and her pelvic exam was normal. Pt. states that she is a frequent user of NSAIDs but states that she doesn't usually take them every day. If she does take them, she takes 4 usually. She states that she is passing gas. She complains of nausea but no vomiting. Onset Date: 08/31/19 Location: Reports: Chest, Abdomen, Generalized Quality: Reports: Ache, Burning Severity: Moderate Mid-Sternal Chest Pain Score (Numeric/FACES): 7 - Related Data Allergies Allergy/AdvReac Type Severity Reaction Status Date / Time cephalexin Allergy Rash Verified 09/01/19 17:51 Home Meds: Home Meds Sertraline HCl 50 mg PO DAILY 02/26/19 [History] Propranolol HCl [Propranolol] 60 mg PO DAILY 03/17/19 [History] Past Medical History - Past Health History Medical/Surgical History: Denies Medical/Surgical History Cardiovascular History: Reports: Other (See Below) Other Cardiovascular History: Tachycardia 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 Psychiatric History: Reports: Anxiety, Depression - Past Surgical History HEENT Surgical History: Reports: Adenoidectomy, Tonsillectomy Musculoskeletal Surgical History: Reports: Other (See Below) Other Musculoskeletal Surgeries/Procedures:: hx of surgery to right ankle, right femur and jaw ED ROS GENERAL - Review of Systems Review Of Systems: See Below Constitutional: Reports: Malaise, Fatigue, Night Sweats, Diaphoresis HEENT: Reports: No Symptoms Respiratory: Reports: No Symptoms Cardiovascular: Reports: No Symptoms Endocrine: Reports: No Symptoms GI/Abdominal: Reports: Abdominal Pain, Black Stool, Constipation, Nausea. Denies: Bloody Stool, Hematemesis, Hematochezia, Melena, Vomiting : Reports: No Symptoms Musculoskeletal: Reports: No Symptoms Skin: Reports: No Symptoms Neurological: Reports: No Symptoms Psychiatric: Reports: No Symptoms Hematologic/Lymphatic: Reports: No Symptoms Immunologic: Reports: No Symptoms ED EXAM, GENERAL - Physical Exam Exam: See Below Exam Limited By: No Limitations General Appearance: Alert, WD/WN, No Apparent Distress Throat/Mouth: Normal Inspection, Normal Lips, Normal Teeth, Normal Gums, Normal Oropharynx, Normal Voice, No Airway Compromise Head: Atraumatic, Normocephalic Neck: Normal Inspection, Supple, Non-Tender, Full Range of Motion Respiratory/Chest: No Respiratory Distress, Lungs Clear, Normal Breath Sounds, No Accessory Muscle Use, Chest Non-Tender Cardiovascular: Normal Peripheral Pulses, Regular Rate, Rhythm, No Edema, No Gallop, No JVD, No Murmur, No Rub Peripheral Pulses: 4+: Radial (R) GI/Abdominal: Normal Bowel Sounds, Soft, No Organomegaly, No Distention, No Mass , Tender (Female) Exam: Deferred Rectal (Female) Exam: Deferred Back Exam: Normal Inspection, Full Range of Motion Extremities: Normal Inspection, Normal Range of Motion, Non-Tender, No Pedal Edema, Normal Capillary Refill Neurological: Alert, Oriented, CN II-XII Intact, Normal Cognition, Normal Gait, Normal Reflexes, No Motor/Sensory Deficits Psychiatric: Normal Affect, Normal Mood Skin Exam: Warm, Dry, Intact, Normal Color, No Rash Lymphatic: No Adenopathy EKG INTERPRETATION Rhythm: NSR [place]: Normal P-Wave: Present QRS: Normal ST-T: Normal QT: Normal Course - Vital Signs Last Recorded V/S: Last Vital Signs Temp 37.2 C 09/01/19 17:35 Pulse 79 09/01/19 17:35 Resp 16 09/01/19 17:35 BP 119/74 09/01/19 17:35 Pulse Ox 96 09/01/19 17:35 - Orders/Labs/Meds Orders: Active Orders 24 hr Category Date Time Status EKG Documentation Completion [RC] STAT Care 09/01/19 17:43 Active Labs: Laboratory Tests 09/01/19 09/01/19 09/01/19 Range/Units 17:50 17:55 17:55 WBC 8.4 (4.0-10.0) x10^3/uL RBC 4.20 (4.00-5.50) x10^6/uL Hgb 12.9 (12.0-16.0) g/dL Hct 37.0 (33.0-47.0) % MCV 88.1 (78.0-93.0) fL MCH 30.7 (26.0-32.0) pg MCHC 34.9 (32.0-36.0) g/dL RDW Coeff of Courtney 12.9 (10.0-15.0) % Plt Count 255 D (130-400) x10^3/uL Neut % (Auto) 72.7 (50.0-80.0) % Lymph % (Auto) 17.3 L (25.0-50.0) % [place] % (Auto) 8.4 (2.0-11.0) % Eos % (Auto) 1.5 (0.0-4.0) % Baso % (Auto) 0.1 L (0.2-1.2) % PT 10.2 (10.0-12.8) SEC INR 0.9 L (2.0-3.5) D-Dimer, Quantitative < 0.19 (<=0.58) mg/LFEU Sodium (69-191) mmol/L Potassium (1.5-9.9) mmol/L Chloride (54-184) mmol/L Carbon Dioxide (21-32) mmol/L Anion Gap (10-20) mmol/L BUN (7-18) mg/dL Creatinine (0.55-1.02) mg/dL Est Cr Clr Drug Dosing mL/min Estimated GFR (MDRD) Glucose (74-106) mg/dL Calcium (8.5-10.1) mg/dL Corrected Calcium (8.5-10.1) mg/dL Phosphorus (2.6-4.7) mg/dL Magnesium (1.8-2.4) mg/dL Total Bilirubin (0.2-1.0) mg/dL AST (15-37) U/L ALT (14-59) U/L Alkaline Phosphatase (46-116) U/L Troponin I (<=0.056) ng/mL C-Reactive Protein (<=0.9) mg/dL Total Protein (6.4-8.2) g/dL Albumin (3.4-5.0) g/dL Globulin Albumin/Globulin Ratio Stool Occult Blood Negative (NEGATIVE) 09/01/19 Range/Units 17:55 WBC (4.0-10.0) x10^3/uL RBC (4.00-5.50) x10^6/uL Hgb (12.0-16.0) g/dL Hct (33.0-47.0) % MCV (78.0-93.0) fL MCH (26.0-32.0) pg MCHC (32.0-36.0) g/dL RDW Coeff of Courtney (10.0-15.0) % Plt Count (130-400) x10^3/uL Neut % (Auto) (50.0-80.0) % Lymph % (Auto) (25.0-50.0) % [place] % (Auto) (2.0-11.0) % Eos % (Auto) (0.0-4.0) % Baso % (Auto) (0.2-1.2) % PT (10.0-12.8) SEC INR (2.0-3.5) D-Dimer, Quantitative (<=0.58) mg/LFEU Sodium 140 (69-191) mmol/L Potassium 3.8 (1.5-9.9) mmol/L Chloride 103 (54-184) mmol/L Carbon Dioxide 27 (21-32) mmol/L Anion Gap 13.8 (10-20) mmol/L BUN 14 (7-18) mg/dL Creatinine 0.8 (0.55-1.02) mg/dL Est Cr Clr Drug Dosing 73.46 mL/min Estimated GFR (MDRD) > 60 Glucose 79 (74-106) mg/dL Calcium 9.0 (8.5-10.1) mg/dL Corrected Calcium 9.16 (8.5-10.1) mg/dL Phosphorus 3.7 (2.6-4.7) mg/dL Magnesium 1.9 (1.8-2.4) mg/dL Total Bilirubin 0.3 (0.2-1.0) mg/dL AST 25 (15-37) U/L ALT 39 (14-59) U/L Alkaline Phosphatase 65 (46-116) U/L Troponin I < 0.017 (<=0.056) ng/mL C-Reactive Protein < 0.2 (<=0.9) mg/dL Total Protein 7.2 (6.4-8.2) g/dL Albumin 3.8 (3.4-5.0) g/dL Globulin 3.4 Albumin/Globulin Ratio 1.12 Stool Occult Blood (NEGATIVE) Meds: Medications Discontinued Medications Generic Name Dose Route Start Last Admin Trade Name Freq PRN Reason Stop Dose Admin Pantoprazole Sodium 40 mg 09/01/19 18:33 Protonix PO 09/01/19 18:34 ONETIME ONE - Radiology Interpretation Free Text/Narrative:: negative chest x-ray Departure - Departure Time of Disposition: 06:40 Disposition: Home, Self-Care 01 Condition: Good Clinical Impression: GERD (gastroesophageal reflux disease) - Discharge Information Instructions: Pantoprazole tablets, Gastroesophageal Reflux Disease, Adult, [id number] Referrals: Swathi Arnett MD [Primary Care Provider] - Forms: ED Department Discharge Additional Instructions: Start protonix 40mg once daily. If you are still having the symptoms of metallic belching/chest discomfort, I would notify your opto mechanical technician, as they may want to do an upper GI scope as well. Drink plenty of fluids. [place] diet tonight. - My Orders Last 24 Hours: My Active Orders 09/01/19 17:43 EKG Documentation Completion [RC] STAT - Assessment/Plan Last 24 Hours: My Active Orders 09/01/19 17:43 EKG Documentation Completion [RC] STAT Plan: Start protonix 40mg once daily. If you are still having the symptoms of metallic belching/chest discomfort, I would notify your opto mechanical technician, as they may want to do an upper GI scope as well. Drink plenty of fluids. [place] diet tonight.
[2019-09-01 18:28] LABS: CHLORIDE,CL 103 mmol/L (54-184); SODIUM,NA 140 mmol/L (69-191)
[2019-09-01 18:29] LABS: ANION GAP 13.8 mmol/L (10-20)
--- NOTE | 2019-09-01 18:31 | CR ---
[id number] RAD/RAD Chest PA or AP 1V EXAM: RAD Chest PA or AP 1V INDICATION: CHEST PAIN. COMPARISON: February 26, 2019. DISCUSSION: Cardiomediastinal silhouette is normal in size and contour. No infiltrate, effusion, pneumothorax, or edema. IMPRESSION: Negative examination of the chest. Andrea Kidd MD 09/01/19 0327 Thank you for allowing us to participate in the care of your patient.
[2019-09-01] MEDS ORDERED: Pantoprazole 40 MG Tab.CR PO ONE (18:33)
== END 2019-09-01 18:45 | disposition home or self-care (01) ==
LOC: VM.ED 17:30
DX: K21.9 Gastro-esophageal reflux disease without esophagitis (principal)
CPT/HCPCS: 36415; 71045; 80053; 82274; 83735; 84100; 84484; 85025; 85379; 85610; 86140; 93005; 99285-25; A9270-GY

== ENCOUNTER 2019-12-17 09:45 | Emergency (ER) | payer BC ==
--- NOTE | 2019-12-17 10:19 | EDM.PDOC ---
ED HPI GENERAL MEDICAL PROBLEM - General Chief Complaint: Respiratory Problem Stated Complaint: ER VISIT Time Seen by Provider: 12/17/19 10:00 Source of Information: Reports: Patient History Limitations: Reports: No Limitations - History of Present Illness INITIAL COMMENTS - FREE TEXT/NARRATIVE: Patient presents to ER with complaints of chest discomfort with cough and deep breaths. Was diagnosed with influenza on Wednesday, continues to have fever, cough and wheezing at times. She states fevers are more low grade now. Has history of arrhythmia so was worried about that. Is currently not on any medications for this. She feels achy. No nausea or vomiting. Has been eating and drinking well. Onset: Today Duration: Day(s): Location: Reports: Chest Quality: Reports: Ache, Sharp Severity: Moderate Improves with: Reports: None Worsens with: Reports: Breathing Associated Symptoms: Reports: Cough, Fever/Chills, Malaise, Shortness of Breath , Weakness. 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 - Related Data Allergies Allergy/AdvReac Type Severity Reaction Status Date / Time cephalexin Allergy Rash Verified 09/01/19 17:51 Home Meds: Home Meds Sertraline HCl 50 mg PO DAILY 02/26/19 [History] Propranolol HCl [Propranolol] 60 mg PO DAILY 03/17/19 [History] Past Medical History - Past Health History Medical/Surgical History: Denies Medical/Surgical History Cardiovascular History: Reports: Other (See Below) Other Cardiovascular History: Tachycardia Gastrointestinal History: Reports: Other (See Below) Other Gastrointestinal History: cholitis 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 Psychiatric History: Reports: Anxiety, Depression - Past Surgical History HEENT Surgical History: Reports: Adenoidectomy, Tonsillectomy Musculoskeletal Surgical History: Reports: Other (See Below) Other Musculoskeletal Surgeries/Procedures:: hx of surgery to right ankle, right femur and jaw Social & Family History - Tobacco Use Smoking Status *Q: Unknown Ever Smoked ED ROS GENERAL - Review of Systems Review Of Systems: See Below Constitutional: Reports: Fever, Chills, Malaise, Weakness, Fatigue, Decreased Appetite HEENT: Reports: Ear Pain, Rhinitis. Denies: Sinus Problem, Throat Pain Respiratory: Reports: Shortness of Breath, Cough Cardiovascular: Denies: Chest Pain, Edema, Lightheadedness Endocrine: Reports: Fatigue GI/Abdominal: Denies: Abdominal Pain, Nausea, Vomiting : Reports: No Symptoms Musculoskeletal: Reports: No Symptoms Skin: Reports: No Symptoms ED EXAM, GENERAL - Physical Exam Exam: See Below Exam Limited By: No Limitations General Appearance: Alert, WD/WN, No Apparent Distress Ears: Normal External Exam, Normal TMs Nose: Normal Inspection, Normal Mucosa, No Blood Throat/Mouth: Normal Inspection, Normal Oropharynx Head: Normocephalic Neck: Normal Inspection, Supple, Non-Tender Respiratory/Chest: No Respiratory Distress, Lungs Clear, Normal Breath Sounds Cardiovascular: Regular Rate, Rhythm GI/Abdominal: Normal Bowel Sounds, Soft, Non-Tender Extremities: Normal Inspection, No Pedal Edema Neurological: Alert, Oriented Skin Exam: Warm, Dry Course - Orders/Labs/Meds Meds: Medications Discontinued Medications Generic Name Dose Route Start Last Admin Trade Name Freq PRN Reason Stop Dose Admin Prednisone 1 packet 12/17/19 10:13 Take Home: Prednisone 20 Mg, 2 Tab Pack PO 12/17/19 10:14 ONETIME ONE Departure - Departure Time of Disposition: 10:18 Disposition: Home, Self-Care 01 Condition: Fair Clinical Impression: Influenza, Pleuritic chest pain - Discharge Information *PRESCRIPTION DRUG MONITORING PROGRAM REVIEWED*: No *COPY OF PRESCRIPTION DRUG MONITORING REPORT IN PATIENT DILIP: No Forms: ED Department Discharge Additional Instructions: 1. Push fluids 2. Tylenol or ibuprofen for fever or discomfort 3. Prednisone 20 mg~ 2 tabs daily for 3 days 4. Follow up with primary care provider as needed Sepsis Event Note - Focused Exam Date Exam was Performed: 12/17/19 Time Exam was Performed: 10:23
[2019-12-17] MEDS: Take Home: predniSONE 20 MG, 2 Tab Pack PO ONE (10:29)
== END 2019-12-17 10:30 | disposition home or self-care (01) ==
LOC: VM.ED 09:45
DX: J11.1 Influenza due to unidentified influenza virus with other respiratory manifestations (principal); R07.81 Pleurodynia; F41.9 Anxiety disorder, unspecified; F32.9 Major depressive disorder, single episode, unspecified; Z79.899 Other long term (current) drug therapy; Z88.1 Allergy status to other antibiotic agents
CPT/HCPCS: 93005; 99284-25; A9270-GY